=== PATIENT | female | born 1970 | race Two or more races ===

== ENCOUNTER 2023-09-28 10:40 | Emergency (ER) | payer OTHER ==
[~2023-09-28] VITALS: Ht 172.7 cm; Wt 68.0 kg
== END 2023-09-28 11:51 | disposition home or self-care (01) ==
LOC: ER 10:41
DX: D17.9 Benign lipomatous neoplasm, unspecified (principal); Z88.0 Allergy status to penicillin; Z88.8 Allergy status to other drugs, medicaments and biological substances

== ENCOUNTER 2023-10-03 10:22 | Emergency (ER) | payer OTHER ==
[~2023-10-03] VITALS: Ht 172.7 cm; Wt 68.0 kg
== END 2023-10-03 14:57 | disposition home or self-care (01) ==
LOC: ER 10:22
DX: L02.213 Cutaneous abscess of chest wall (principal); Z91.041 Radiographic dye allergy status; Z88.0 Allergy status to penicillin